=== PATIENT | male | born 1970 | race Caucasian/White ===

== ENCOUNTER 2016-06-13 22:12 | Emergency (ER) | payer MEDICAID ==
[2016-06-14] MEDS ORDERED: HYDROmorphone 1 MG/ML SYRINGE IVP STA ×2 (00:18→04:29)
[2016-06-14] MEDS ORDERED: HYDROmorphone 1 MG/ML SYRINGE ONE ×2 (00:29→04:34)
[2016-06-14] MEDS ORDERED: IOPAMIDOL-300 100 ML VIAL IVP ONE (01:28)
[2016-06-14] MEDS ORDERED: metroNIDAZOLE 500 MG/100 ML 100 ML IV STA (04:48)
[2016-06-14] MEDS ORDERED: CIPROFLOXACIN 400 MG/200 ML 200 ML IV ONE ×2 (04:48→05:11)
[2016-06-14] MEDS ORDERED: ONDANSETRON 4 MG/2 ML VIAL IVP STA (05:01)
[2016-06-14] MEDS ORDERED: metroNIDAZOLE 500 MG/100 ML 100 ML ONE (05:10)
[2016-06-14] MEDS ORDERED: ONDANSETRON 4 MG/2 ML VIAL ONE (05:10)
== END 2016-06-14 06:55 | disposition short-term general hospital (02) ==
DX: K57.20 Diverticulitis of large intestine with perforation and abscess without bleeding (principal); Z86.718 Personal history of other venous thrombosis and embolism; F17.200 Nicotine dependence, unspecified, uncomplicated
CPT/HCPCS: 36415; 74177; 80053; 81003; 83690; 85025; 96365; 96367; 96375; 96376; 99284; 99285; J1170; Q9967

== ENCOUNTER 2016-06-14 | Outpatient (CLI) | payer MEDICAID | END 2016-06-14 06:58 | disposition short-term general hospital (02) | DX: R10.9 Unspecified abdominal pain (principal) | CPT/HCPCS: A0170; A0425; A0426 ==